=== PATIENT | male | born 1995 | race African-American/Black ===

== ENCOUNTER 2022-01-13 16:54 | Emergency (ER) | payer OTHER ==
[2022-01-13 17:53] LABS: HEMOGLOBIN 13.8 gm/dl (14.0-17.5); RED BLOOD COUNT 4.59 M/UL (4.20-5.50); WHITE BLOOD COUNT 11.5 K/UL (4.5-11.0)
[2022-01-13 18:20] LABS: BUN/CREATININE RATIO 10 (0-10)
[2022-01-13] MEDS ORDERED: VIBRAMYCIN100 MG PO (22:20)
== END 2022-01-13 22:45 | disposition home or self-care (01) ==
LOC: ER1 16:54
PROVIDERS: Physician Assistant Medical
DX: N45.3 Epididymo-orchitis (principal); N43.3 Hydrocele, unspecified; F17.210 Nicotine dependence, cigarettes, uncomplicated
CPT/HCPCS: 76870; 80053; 81001; 85025; 96372; 96374; 99284; J0696; J1885; Q9967